=== PATIENT | female | born 1990 | race Caucasian/White ===

== ENCOUNTER 2024-03-22 09:24 | Inpatient (IN) ==
[2024-03-22] MEDS ORDERED: OXYTOCIN 30 UNITS/NSS 30 UNITS/500 ML BAG IV PRN (09:34)
[2024-03-22] MEDS ORDERED: LIDOCAINE 1% LOCAL 20 ML VIAL INFIL PRN (09:34)
[2024-03-22 10:22] LABS: Hematocrit (blood only) 36.3 % (37.0-47.0); Hemoglobin 12.4 g/dl (12.0-16.0); Mean Corpuscular Hemoglobin 30.8 pg (25.0-34.0); Mean Corpuscular Hgb Conc 34.2 g/dL (32.0-36.0); Mean Corpuscular Volume 90.3 fL (80.0-100.0); Platelet Count 243 K/uL (130-400); RDW Coefficient of Variation 13.1 % (11.5-14.5); RDW Standard Deviation 42.9 fL (36.4-46.3); Red Blood Count 4.02 M/uL (4.20-5.40); White Blood Count 10.91 K/ul (4.8-10.8)
--- NOTE | 2024-03-22 10:29 | History & Physical Report ---
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 Endorses only complications with was some food aversion in 1st trimester and bleeding in the 2nd trimester, otherwise uncomplicated. States only pain she's having is left upper abdominal pain and left lower rib pain due to kicking/pressure on those areas more than others. Denies any recent fever, body aches, chills, headache, visual changes, SOB, LE pain/swelling, or LE numbness/tingling. GBS+ on 02/21/24, Rh- has received rhogam Allergies Allergy/AdvReac Type Severity Reaction Status Date / Time cat dander Allergy Intermediate sinus Verified 03/20/24 08:38 congestion house dust Allergy Intermediate SOB Verified 03/20/24 08:38 dog dander Allergy Mild puffy eye Verified 03/20/24 08:38 No Known Drug Allergies Allergy Unknown Verified 03/22/24 09:52 peanut Allergy Diarrhea Verified 03/22/24 09:52 turkey Allergy SEVERE Uncoded 03/20/24 08:38 DIARRHEA Home Medications Medication Instructions Recorded Confirmed Type cetirizine 10 mg tablet (Zyrtec) 10 mg PO DAILY 09/24/23 03/22/24 History omega-3 acid ethyl esters 1 gram 1 cap PO DAILY 09/24/23 03/22/24 History capsule vitamin no.180-ferrous 1 tab PO DAILY 09/24/23 03/22/24 History fumarate 27 mg-folic acid 1 mg tablet ( Plus Vitamin-Mineral) magnesium glycinate 100 mg PO DAILY #30 caps 10/07/23 03/22/24 Rx valacyclovir 500 mg tablet 500 mg PO BID #60 tabs 02/21/24 03/22/24 Rx (Valtrex) Patient History Medical History Supervision of elderly multigravida NAVEED III with severe dysplasia Surgical History Status post knee surgery R [place] teeth removed H/O knee surgery H/O LEEP L, when pt had done Family History Grandfather (Paternal) Prostate cancer Denies family history of Ovarian cancer Myocardial infarction Breast cancer Colorectal cancer Social History Smoking Status: Never smoker Second Hand Exposure: No; Do You Dip or Chew Tobacco: No; Hx Alcohol Use: No Hx Substance Use: No Preferred Language: Malay Communication Ability: Effective Visual Impairment: No Limitations Hearing Ability: Normal Business Owner/Engineer Required: No Beliefs That Will Affect Care: None marital status: marital status details: Jr (35) [phone] or [phone] Current Living Situation: Spouse Current Living Situation Comment: lives with sposuecat and dog spouse to change litter current occupational status: employed current occupation: Drill Instructor Other Information That Helps Us Care for You: No Feels Safe at Home: Yes Safety Concerns: Feels Safe At This Time Childhood Exposure to Second-Hand Smoke: No Diet: regular Dental Care, Regularly: Yes Physical Activity Frequency: 5-6 Times per Week Seatbelt Use: always Sunscreen Use: Yes Assistive Devices: None Review of Systems as above Physical Exam Physical Exam: General: A&Ox4, answers questions appropriately, resting comfortably, nontoxic in appearance Skin: warm, dry, intact HEENT: NC/AT, anicteric sclerae, conjunctiva w/o injection, moist mucous membranes Heart: +s1/s2, RRR, no murmurs/rubs/gallops Lungs: equal air entry b/l, clear to auscultation b/l, no wheeze/rales/rhonchi Abd: gravid, +BS, LUQ mildly tender to palpation, no erythema or swelling Cervical: 4/80/-2, uterus anterior, est weight 8-9lbs Ext: no erythema/swelling/tenderness to palpation, no cyanosis/clubbing Neuro: speech intact, no facial droop, moving all extremities on command : FHR baseline 135, moderate variability, accelerations present, decelerations absent Results & Data Vital Signs (Past 12 Hours) Vital Signs Temp Pulse Resp BP 03/22/24 09:56 37.0 C 20 03/22/24 09:40 99 H 129/82 Supervising Physician Co-Signing Physician Notes Resident Physician Supervision Note: I interviewed and examined the patient. Discussed with Dr. Barba and agree with findings and plan as documented in the note. Any exceptions or clarifications are listed here: 34yo @ 40 5/7, IOL postdates, Advanced maternal age, Rh-, GBS positive, history of HSV. On Valtrex, no active lesions. Will admit to labor and delivery, anticipate induction of labor with Pitocin. Patient is agreeable to this plan. Will plan to start Pitocin when safe nursing staffing is available. Patient aware of potential delay due to staffing. Documented By: Leora Benjamin DO Resident Activity Tracking Resident Involvement: Resident Care Provided Care Provided: OB Delivery
[2024-03-22] MEDS: PENICILLIN GK 6 MU in DEXTROSE 5% 250 ML IV STA (14:00)
[2024-03-22] MEDS: LACTATED RINGER'S 1,000 ML IV PRN (14:00)
[2024-03-22] MEDS: OXYTOCIN 30 UNITS/NSS 30 UNITS/500 ML BAG IV PRN (15:23)
--- NOTE | 2024-03-22 16:39 | Obstetrical Progress Note ---
Date of Service March 22, 2024 Assessment & Plan Admission and Anticipated Discharge Date Admission Date: March 22, 2024 Subjective Comfortable, not feeling contractions. FHT category 1. [place] every 2 to 4 minutes. Continue Pitocin. Results & Data Vital Signs (Past 12 Hours) Vital Signs Temp Pulse Resp BP 03/22/24 16:33 75 03/22/24 16:33 144/90 H 03/22/24 15:45 18 03/22/24 15:45 18 03/22/24 15:24 80 03/22/24 15:24 139/88 03/22/24 15:15 18 03/22/24 15:15 37.1 C 18 03/22/24 14:45 18 03/22/24 14:45 18 03/22/24 14:15 18 03/22/24 14:15 18 03/22/24 14:01 72 03/22/24 14:01 141/80 H 03/22/24 11:10 20 03/22/24 11:10 20 03/22/24 11:00 18 03/22/24 11:00 18 03/22/24 10:29 20 03/22/24 10:29 20 03/22/24 10:00 18 03/22/24 10:00 18 03/22/24 09:56 37.0 C 20 03/22/24 09:40 99 H 129/82 PG Care Time/CCT Total # of Minutes Spent Total Time Spent with Patient: Total time spent is greater than 50% in coordination of care (as documented) at patient's floor/unit and/or counseling patient: Coding Level of Care Code None
[2024-03-22] MEDS: PENICILLIN GK 3 MU in DEXTROSE 5% 100 ML IV PRN (18:02)
--- NOTE | 2024-03-22 22:23 | Labor Progress Brief Note ---
Date of Service March 22, 2024 Subjective Not feeling ctx. Comfortable. FHT Cat 1 [place] Q 2 SVE 5/80/-2 Pit @ 20 AROM clear fluid. Continue labor. Assessment & Plan Admission and Anticipated Discharge Date Admission Date: March 22, 2024 Results & Data Vital Signs (Past 12 Hours) Vital Signs Temp Pulse Resp BP Pulse Ox 03/22/24 22:18 100 03/22/24 22:18 69 03/22/24 22:13 100 03/22/24 22:13 72 03/22/24 22:10 18 03/22/24 22:10 36.5 C 18 03/22/24 22:08 100 03/22/24 22:08 81 03/22/24 22:03 99 03/22/24 22:03 74 03/22/24 21:31 18 03/22/24 21:31 18 03/22/24 21:31 64 03/22/24 21:31 117/75 03/22/24 20:32 18 03/22/24 20:32 18 03/22/24 20:32 61 03/22/24 20:32 121/74 03/22/24 19:30 64 03/22/24 19:30 134/81 03/22/24 19:07 18 03/22/24 19:07 37.1 C 18 03/22/24 19:00 20 03/22/24 19:00 20 03/22/24 18:30 18 03/22/24 18:30 18 03/22/24 18:02 75 03/22/24 18:02 135/77 03/22/24 18:00 18 03/22/24 18:00 18 03/22/24 17:15 18 03/22/24 17:15 18 03/22/24 17:03 67 03/22/24 17:03 144/77 H 03/22/24 16:33 75 03/22/24 16:33 144/90 H 03/22/24 16:15 18 03/22/24 16:15 18 03/22/24 15:45 18 03/22/24 15:45 18 03/22/24 15:24 80 03/22/24 15:24 139/88 03/22/24 15:15 18 03/22/24 15:15 37.1 C 18 03/22/24 14:45 18 10/17/24 14:45 18 03/22/24 14:15 18 03/22/24 14:15 18 03/22/24 14:01 72 03/22/24 14:01 141/80 H 03/22/24 11:10 20 03/22/24 11:10 20 03/22/24 11:00 18 03/22/24 11:00 18 03/22/24 10:29 20 03/22/24 10:29 20 Coding Level of Care Code None
[2024-03-22] MEDS ORDERED: SODIUM CHLORIDE 0.9% PF INJ 10 ML VIAL EPI PRN (23:23)
[2024-03-22] MEDS ORDERED: ePHEDrine sulfate 50 MG/ML AMP IV PRN (23:23)
[2024-03-22] MEDS ORDERED: fentaNYL citrate PF 100 MCG/2 ML VIAL EPI PRN (23:23)
[2024-03-22] MEDS ORDERED: BUPIVACAINE 0.25% PF 30 ML VIAL EPI PRN (23:23)
[2024-03-22] MEDS ORDERED: diphenhydrAMINE 50 MG/ML VIAL IV PRN (23:23)
[2024-03-22] MEDS ORDERED: ROPIVACAINE 0.5% PF 5 MG/ML 20 ML VIAL EPI PRN (23:23)
[2024-03-22] MEDS ORDERED: LIDOCAINE 2% MPF LOCAL 5 ML VIAL EPI PRN (23:23)
[2024-03-22] MEDS ORDERED: NALOXONE HCL 1 MG in SODIUM CHLORIDE 0.9% 1,000 ML IV PRN (23:23)
[2024-03-22] MEDS ORDERED: NALOXONE HCL 0.4 MG/1 ML VIAL/CARP IV PRN (23:23)
[2024-03-22] MEDS ORDERED: NALBUPHINE HCL INJ 10 MG/ML AMP IV PRN (23:23)
--- NOTE | 2024-03-22 23:23 | Anesthesiology Consultation ---
Date of Service March 22, 2024 Assessment & Plan (1) Encounter for pre-operative examination: Chart Review Chart Review: Patient NOT seen in Pre Admission Testing and Acceptable Risk for Labor Epidural Consults Requested none History Height/Weight Height: 5 ft 7 in Weight: 106.141 kg Allergies Allergy/AdvReac Type Severity Reaction Status Date / Time cat dander Allergy Intermediate sinus Verified 03/20/24 08:38 congestion house dust Allergy Intermediate SOB Verified 03/20/24 08:38 dog dander Allergy Mild puffy eye Verified 03/20/24 08:38 No Known Drug Allergies Allergy Unknown Verified 03/22/24 09:52 peanut Allergy Diarrhea Verified 03/22/24 09:52 turkey Allergy SEVERE Uncoded 03/20/24 08:38 DIARRHEA Medications Home Medications Medication Instructions Recorded Confirmed Last Taken cetirizine 10 mg tablet (Zyrtec) 10 mg PO DAILY 09/24/23 03/22/24 03/22/24 omega-3 acid ethyl esters 1 gram 1 cap PO DAILY 09/24/23 03/22/24 03/22/24 capsule vitamin no.180-ferrous 1 tab PO DAILY 09/24/23 03/22/24 03/22/24 fumarate 27 mg-folic acid 1 mg tablet ( Plus Vitamin-Mineral) magnesium glycinate 100 mg PO DAILY #30 caps 10/07/23 03/22/24 03/22/24 valacyclovir 500 mg tablet 500 mg PO BID #60 tabs 02/21/24 03/22/24 03/22/24 (Valtrex) Active Medications Generic Name Dose Route Start Last Admin Trade Name Freq PRN Reason Stop Dose Admin Oxytocin 30 units in 500 mls @ 10 mls/hr 03/22/24 09:34 03/22/24 22:32 Pitocin 30 Units/Nss IV 03/24/24 09:33 0.6 units/hr .Q24H PRN 10 mls/hr Labor Induction/Augmentation Titration Protocol 0.6 UNITS/HR Lactated Ringer's 1,000 mls @ 125 mls/hr 03/22/24 09:34 03/22/24 23:16 Lr IV 03/24/24 09:33 Infused .Q8H PRN Infusion L&D Protocol Protocol Penicillin G Potassium 3 mu/ 106 mls @ 100 mls/hr 03/22/24 14:11 03/22/24 22:08 Dextrose IV 04/01/24 14:10 100 mls/hr Q4H PRN Administration GBS(+) Until Delivery Past Medical History Medical History Supervision of elderly multigravida NAVEED III with severe dysplasia Past Family History Family History Grandfather (Paternal) Prostate cancer Denies family history of Ovarian cancer Myocardial infarction Breast cancer Colorectal cancer Past Surgical History Surgical History Status post knee surgery R [place] teeth removed H/O knee surgery H/O LEEP L, when pt had done Social History Smoking Status: Never smoker Do You Dip or Chew Tobacco: No Hx Alcohol Use: No Alcohol type: wine and hard liquor Hx Substance Use: No substance use type: does not use Physical Exam Vital Signs Last Vital Signs Temp 97.7 F 03/22/24 22:10 Pulse 70 03/22/24 23:03 Resp 18 03/22/24 22:10 BP 109/57 L 03/22/24 22:32 Pulse Ox 100 03/22/24 23:03 Testing Laboratory Results 03/22/24 10:01 Blood Type A Negative 03/22/24 10:01 Blood Type Cancelled 03/22/24 10:01 Antibody Screen Cancelled 03/22/24 10:01 Antibody Screen NEGATIVE 03/22/24 10:01
[2024-03-22] MEDS: BUPIVACAINE 0.25% PF 30 ML VIAL ONE (23:46)
[2024-03-22] MEDS: LIDOCAINE 2%/EPINEPHRINE 1:200,000 20 ML PF ONE (23:46)
[2024-03-22] MEDS: fentANYL 2 MCG/ML BUPIVacaine 0.125%-NSS 100ML BAG ONE (23:47)
[2024-03-23] MEDS: fentaNYL citrate PF 100 MCG/2 ML VIAL ONE (00:07)
[2024-03-23] MEDS: SODIUM CHLORIDE 0.9% PF INJ 10 ML VIAL ONE (00:07)
[2024-03-23] MEDS: ePHEDrine sulfate 50 MG/ML AMP ONE (00:59)
[2024-03-23] MEDS: fentANYL 2 MCG/ML BUPIVacaine 0.125%-NSS 100ML BAG EPI PRN (07:54)
--- NOTE | 2024-03-23 09:14 | Labor Progress Brief Note ---
Date of Service March 23, 2024 Subjective Introduced myself as taking over care. Pt resting comfortably Assessment & Plan (1) Encounter for induction of labor: (2) Group B streptococcal infection during : (3) HSV (herpes simplex virus) infection: Plan 34 yo G1 at 40 6/7 [facility] admitted for IOL VSS Fetus cat 1 currently Labor - pit at 5. Received signout from off-coming provider regarding pit d/c overnight due to decel, pit restarted and slowly increasing with cervical change on last exam by RN around 7. FHT cat 1 currently and rosa regularly so will recheck in the next hour or so. Pt inquiring about whether this is indicative of if baby will tolerate pushing, etc. Discussed this is something to monitor but no way to predict if baby will tolerate pushing but currently looks good, verbalized understanding GBS+, pcn ordered epidural in place Admission and Anticipated Discharge Date Admission Date: March 22, 2024 Physical Exam Genitourinary: OB Exam Monitor Tracing: + external FHT monitor used, + external uterine monitor used (4) and + category I (120/mod/+accel/-decel) Results & Data Vital Signs (Past 12 Hours) Vital Signs Temp Pulse Resp BP Pulse Ox 03/23/24 09:10 69 100 03/23/24 09:09 64 138/93 03/23/24 09:05 61 99 03/23/24 09:00 64 99 03/23/24 08:55 99 03/23/24 08:55 72 03/23/24 08:55 70 134/91 03/23/24 08:50 65 98 03/23/24 08:45 63 99 03/23/24 08:40 71 100 03/23/24 08:39 71 127/68 03/23/24 08:35 68 99 03/23/24 08:30 71 98 03/23/24 08:25 79 136/63 99 03/23/24 08:20 74 98 03/23/24 08:15 63 98 03/23/24 08:10 72 129/80 98 03/23/24 08:05 63 97 03/23/24 08:00 97.9 F 66 18 99 03/23/24 07:56 72 137/74 03/23/24 07:55 79 100 03/23/24 07:50 65 99 03/23/24 07:45 71 99 03/23/24 07:40 75 99 03/23/24 07:39 65 128/69 03/23/24 07:35 71 100 03/23/24 07:30 77 100 03/23/24 07:25 74 99 03/23/24 07:24 68 16 133/73 03/23/24 07:20 63 99 03/23/24 07:15 64 99 03/23/24 07:10 67 138/76 100 03/23/24 07:05 80 100 03/23/24 07:00 81 99 03/23/24 06:55 68 141/74 H 98 03/23/24 06:50 98.2 F 75 18 98 03/23/24 06:45 74 98 03/23/24 06:40 81 99 03/23/24 06:35 84 98 03/23/24 06:30 73 99 03/23/24 06:25 66 100 03/23/24 06:24 70 16 128/80 03/23/24 06:20 66 98 03/23/24 06:15 67 98 03/23/24 06:10 98 03/23/24 06:10 65 03/23/24 06:10 67 129/68 03/23/24 06:04 62 98 03/23/24 05:59 65 99 03/23/24 05:57 63 121/67 03/23/24 05:54 98 H 99 03/23/24 05:49 68 98 03/23/24 05:45 16 03/23/24 05:45 98.2 F 16 03/23/24 05:44 66 99 03/23/24 05:39 83 136/84 100 03/23/24 05:34 66 97 03/23/24 05:29 65 97 03/23/24 05:24 65 131/83 98 03/23/24 05:19 69 97 03/23/24 05:14 68 98 03/23/24 05:09 98 03/23/24 05:09 71 03/23/24 05:09 66 127/80 03/23/24 05:04 71 99 03/23/24 04:59 67 100 03/23/24 04:55 69 127/83 03/23/24 04:54 69 99 03/23/24 04:49 65 98 03/23/24 04:44 61 97 03/23/24 04:39 66 137/78 100 03/23/24 04:34 65 99 03/23/24 04:29 76 100 03/23/24 04:25 68 135/97 03/23/24 04:24 67 100 03/23/24 04:19 79 98 03/23/24 04:14 79 99 03/23/24 04:13 88 94 03/23/24 04:09 100 03/23/24 04:09 67 03/23/24 04:09 72 130/89 03/23/24 04:04 69 97 03/23/24 04:00 16 03/23/24 04:00 98.2 F 16 03/23/24 03:59 56 L 98 03/23/24 03:55 61 126/82 03/23/24 03:54 62 96 03/23/24 03:49 58 L 97 03/23/24 03:44 61 97 03/23/24 03:40 60 127/77 03/23/24 03:39 57 L 98 03/23/24 03:34 59 L 98 03/23/24 03:29 69 97 03/23/24 03:25 59 L 124/72 03/23/24 03:24 58 L 99 03/23/24 03:19 60 99 03/23/24 03:14 60 100 03/23/24 03:11 64 129/77 03/23/24 03:09 62 100 03/23/24 03:04 74 99 03/23/24 02:59 71 99 03/23/24 02:54 79 139/89 100 03/23/24 02:49 66 98 03/23/24 02:44 76 99 03/23/24 02:39 68 131/78 100 03/23/24 02:34 68 100 03/23/24 02:30 18 03/23/24 02:30 97.9 F 18 03/23/24 02:29 69 100 03/23/24 02:24 67 127/78 99 03/23/24 02:19 69 96 03/23/24 02:14 67 100 03/23/24 02:10 69 126/75 03/23/24 02:09 63 100 03/23/24 02:04 70 98 03/23/24 01:59 60 99 03/23/24 01:54 74 126/76 100 03/23/24 01:49 62 97 03/23/24 01:44 72 99 03/23/24 01:39 78 124/75 98 03/23/24 01:34 75 97 03/23/24 01:29 76 96 03/23/24 01:26 65 122/74 03/23/24 01:24 67 97 03/23/24 01:19 64 99 03/23/24 01:14 67 97 03/23/24 01:10 65 121/72 03/23/24 01:09 67 98 03/23/24 01:04 71 97 03/23/24 00:59 66 98 03/23/24 00:54 70 127/74 98 03/23/24 00:49 77 98 03/23/24 00:44 61 98 03/23/24 00:40 70 131/75 03/23/24 00:39 66 98 03/23/24 00:34 67 99 03/23/24 00:29 75 100 03/23/24 00:24 78 99 03/23/24 00:23 67 140/79 03/23/24 00:19 96 H 100 03/23/24 00:14 99 03/23/24 00:14 79 03/23/24 00:14 65 119/68 03/23/24 00:10 71 117/56 L 03/23/24 00:08 79 99 03/23/24 00:04 68 18 118/69 03/23/24 00:03 65 98 03/23/24 00:00 74 129/68 03/22/24 23:58 98 03/22/24 23:58 67 03/22/24 23:54 18 03/22/24 23:54 98.1 F 18 03/22/24 23:53 99 03/22/24 23:53 65 03/22/24 23:52 64 03/22/24 23:52 123/61 03/22/24 23:49 80 03/22/24 23:49 132/68 03/22/24 23:48 98 03/22/24 23:48 77 03/22/24 23:46 18 03/22/24 23:46 18 03/22/24 23:46 76 03/22/24 23:46 115/66 03/22/24 23:43 99 03/22/24 23:43 76 03/22/24 23:43 77 03/22/24 23:43 121/66 03/22/24 23:40 69 03/22/24 23:40 126/70 03/22/24 23:38 99 03/22/24 23:38 69 03/22/24 23:33 98 03/22/24 23:33 71 03/22/24 23:33 131/84 03/22/24 23:28 100 03/22/24 23:28 72 03/22/24 23:23 100 03/22/24 23:23 67 03/22/24 23:03 100 03/22/24 23:03 70 03/22/24 22:58 100 03/22/24 22:58 77 03/22/24 22:53 99 03/22/24 22:53 68 03/22/24 22:48 99 03/22/24 22:48 74 03/22/24 22:43 100 03/22/24 22:43 65 03/22/24 22:38 99 03/22/24 22:38 73 03/22/24 22:33 99 03/22/24 22:33 71 03/22/24 22:32 74 03/22/24 22:32 109/57 L 03/22/24 22:28 98 03/22/24 22:28 89 03/22/24 22:23 99 03/22/24 22:23 71 03/22/24 22:18 100 03/22/24 22:18 69 03/22/24 22:13 100 03/22/24 22:13 72 03/22/24 22:10 18 03/22/24 22:10 97.7 F 18 03/22/24 22:08 100 03/22/24 22:08 81 03/22/24 22:03 99 03/22/24 22:03 74 03/22/24 21:31 18 03/22/24 21:31 18 03/22/24 21:31 64 03/22/24 21:31 117/75 Coding Level of Care Code None Diagnoses Encounter for induction of labor Z34.90 Group B streptococcal infection during O98.819; B95.1 HSV (herpes simplex virus) infection B00.9
--- NOTE | 2024-03-23 12:06 | Labor Progress Brief Note ---
Date of Service March 23, 2024 Subjective delayed entry - found to be complete at last check just before 11am Assessment & Plan (1) Encounter for induction of labor: (2) Group B streptococcal infection during : (3) HSV (herpes simplex virus) infection: Plan 34 yo G1 at 40 6/7 [facility] admitted for IOL VSS Fetus cat 1 currently Labor - pt pushing for the last hour, pushing effectively. ?if pubic arch is narrow but seems to be making steady progress w/ pushing, will continue to monitor GBS+, pcn ordered epidural in place Admission and Anticipated Discharge Date Admission Date: March 22, 2024 Physical Exam Genitourinary: Manual OB Exam: + cervical dilation 10 cm, + cervical effacement 100% and + station 0 and + 1 OB Exam Monitor Tracing: + external FHT monitor used, + external uterine monitor used (4) and + category I (120/mod/+accel/-decel) Results & Data Vital Signs (Past 12 Hours) Vital Signs Temp Pulse Resp BP Pulse Ox 03/23/24 12:00 75 97 03/23/24 11:55 80 97 03/23/24 11:54 71 123/72 03/23/24 11:52 78 85 L 03/23/24 11:50 64 95 03/23/24 11:45 93 H 99 03/23/24 11:41 77 124/62 03/23/24 11:40 97 03/23/24 11:40 105 H 03/23/24 11:40 76 89 L 03/23/24 11:35 71 99 03/23/24 11:33 80 82 L 03/23/24 11:30 71 99 03/23/24 11:25 107 H 100 03/23/24 11:24 70 130/78 03/23/24 11:20 73 84 L 03/23/24 11:17 73 86 L 03/23/24 11:15 70 98 03/23/24 11:10 106 H 100 03/23/24 11:05 76 99 03/23/24 11:03 78 86 L 03/23/24 11:00 75 100 03/23/24 10:55 100 03/23/24 10:55 72 03/23/24 10:55 71 130/84 03/23/24 10:50 69 99 03/23/24 10:45 69 100 03/23/24 10:40 66 99 03/23/24 10:39 72 16 120/76 03/23/24 10:35 71 99 03/23/24 10:30 63 100 03/23/24 10:25 100 03/23/24 10:25 62 03/23/24 10:25 63 115/67 03/23/24 10:20 68 100 03/23/24 10:15 70 100 03/23/24 10:11 63 123/69 03/23/24 10:10 63 99 03/23/24 10:05 59 L 100 03/23/24 10:00 64 100 03/23/24 09:55 100 03/23/24 09:55 71 03/23/24 09:55 99.3 F 65 16 134/76 03/23/24 09:50 61 100 03/23/24 09:45 61 100 03/23/24 09:40 65 100 03/23/24 09:39 62 135/73 03/23/24 09:35 63 100 03/23/24 09:30 69 100 03/23/24 09:25 63 99 03/23/24 09:24 65 135/72 03/23/24 09:20 61 98 03/23/24 09:15 60 99 03/23/24 09:10 69 100 03/23/24 09:09 64 138/93 03/23/24 09:05 61 99 03/23/24 09:00 64 99 03/23/24 08:55 99 03/23/24 08:55 72 03/23/24 08:55 70 134/91 03/23/24 08:50 65 98 03/23/24 08:45 63 99 03/23/24 08:40 71 100 03/23/24 08:39 71 127/68 03/23/24 08:35 68 99 03/23/24 08:30 71 98 03/23/24 08:25 79 136/63 99 03/23/24 08:20 74 98 03/23/24 08:15 63 98 03/23/24 08:10 72 129/80 98 03/23/24 08:05 63 97 03/23/24 08:00 97.9 F 66 18 99 03/23/24 07:56 72 137/74 03/23/24 07:55 79 100 03/23/24 07:50 65 99 03/23/24 07:45 71 99 03/23/24 07:40 75 99 03/23/24 07:39 65 128/69 03/23/24 07:35 71 100 03/23/24 07:30 77 100 03/23/24 07:25 74 99 03/23/24 07:24 68 16 133/73 03/23/24 07:20 63 99 03/23/24 07:15 64 99 03/23/24 07:10 67 138/76 100 03/23/24 07:05 80 100 03/23/24 07:00 81 99 03/23/24 06:55 68 141/74 H 98 03/23/24 06:50 98.2 F 75 18 98 03/23/24 06:45 74 98 03/23/24 06:40 81 99 03/23/24 06:35 84 98 03/23/24 06:30 73 99 03/23/24 06:25 66 100 03/23/24 06:24 70 16 128/80 03/23/24 06:20 66 98 03/23/24 06:15 67 98 03/23/24 06:10 98 03/23/24 06:10 65 03/23/24 06:10 67 129/68 03/23/24 06:04 62 98 03/23/24 05:59 65 99 03/23/24 05:57 63 121/67 03/23/24 05:54 98 H 99 03/23/24 05:49 68 98 03/23/24 05:45 16 03/23/24 05:45 98.2 F 16 03/23/24 05:44 66 99 03/23/24 05:39 83 136/84 100 03/23/24 05:34 66 97 03/23/24 05:29 65 97 03/23/24 05:24 65 131/83 98 03/23/24 05:19 69 97 03/23/24 05:14 68 98 03/23/24 05:09 98 03/23/24 05:09 71 03/23/24 05:09 66 127/80 03/23/24 05:04 71 99 03/23/24 04:59 67 100 03/23/24 04:55 69 127/83 03/23/24 04:54 69 99 10/18/24 04:49 65 98 03/23/24 04:44 61 97 03/23/24 04:39 66 137/78 100 03/23/24 04:34 65 99 03/23/24 04:29 76 100 03/23/24 04:25 68 135/97 03/23/24 04:24 67 100 03/23/24 04:19 79 98 03/23/24 04:14 79 99 03/23/24 04:13 88 94 03/23/24 04:09 100 03/23/24 04:09 67 03/23/24 04:09 72 130/89 03/23/24 04:04 69 97 03/23/24 04:00 16 03/23/24 04:00 98.2 F 16 03/23/24 03:59 56 L 98 03/23/24 03:55 61 126/82 03/23/24 03:54 62 96 03/23/24 03:49 58 L 97 03/23/24 03:44 61 97 03/23/24 03:40 60 127/77 03/23/24 03:39 57 L 98 03/23/24 03:34 59 L 98 03/23/24 03:29 69 97 03/23/24 03:25 59 L 124/72 03/23/24 03:24 58 L 99 03/23/24 03:19 60 99 03/23/24 03:14 60 100 03/23/24 03:11 64 129/77 03/23/24 03:09 62 100 03/23/24 03:04 74 99 03/23/24 02:59 71 99 03/23/24 02:54 79 139/89 100 03/23/24 02:49 66 98 03/23/24 02:44 76 99 03/23/24 02:39 68 131/78 100 03/23/24 02:34 68 100 03/23/24 02:30 18 03/23/24 02:30 97.9 F 18 03/23/24 02:29 69 100 03/23/24 02:24 67 127/78 99 03/23/24 02:19 69 96 03/23/24 02:14 67 100 03/23/24 02:10 69 126/75 03/23/24 02:09 63 100 03/23/24 02:04 70 98 03/23/24 01:59 60 99 03/23/24 01:54 74 126/76 100 03/23/24 01:49 62 97 03/23/24 01:44 72 99 03/23/24 01:39 78 124/75 98 03/23/24 01:34 75 97 03/23/24 01:29 76 96 03/23/24 01:26 65 122/74 03/23/24 01:24 67 97 03/23/24 01:19 64 99 03/23/24 01:14 67 97 03/23/24 01:10 65 121/72 03/23/24 01:09 67 98 03/23/24 01:04 71 97 03/23/24 00:59 66 98 03/23/24 00:54 70 127/74 98 03/23/24 00:49 77 98 03/23/24 00:44 61 98 03/23/24 00:40 70 131/75 03/23/24 00:39 66 98 03/23/24 00:34 67 99 03/23/24 00:29 75 100 03/23/24 00:24 78 99 03/23/24 00:23 67 140/79 03/23/24 00:19 96 H 100 03/23/24 00:14 99 03/23/24 00:14 79 03/23/24 00:14 65 119/68 03/23/24 00:10 71 117/56 L 03/23/24 00:08 79 99 03/23/24 00:04 68 18 118/69 Coding Level of Care Code None Diagnoses Encounter for induction of labor Z34.90 Group B streptococcal infection during O98.819; B95.1 HSV (herpes simplex virus) infection B00.9
--- NOTE | 2024-03-23 14:33 | Labor Progress Brief Note ---
Date of Service March 23, 2024 Subjective Took a short break from pushing due to decel Assessment & Plan (1) Encounter for induction of labor: (2) Group B streptococcal infection during : (3) HSV (herpes simplex virus) infection: Plan 34 yo G1 at 40 6/7 [facility] admitted for IOL VSS Fetus cat 1 currently Labor - pt continues to push very effectively however had to take a short break due to decel. Was able to restart pushing shortly after with restarting pitocin however after pushing on a side, additional decel again noted without further progress beyond +1, there is some caput that may be lower but not bony part. Discussed at this point still remote from delivery, would rec CS due to NRFHT, arrest of descent. Pt in agreement. Discussed indications, risks, benefits, alternatives with risks including infection, bleeding, injury to adjacent structures (bowel, bladder, ureters, blood vessels, nerves, baby), possible need for blood transfusion and/or life saving hysterectomy, VTE. Consent reviewed in detail w/ pt and signed after all questions answered to her satisfaction. T&C, for ancef and azithro Admission and Anticipated Discharge Date Admission Date: March 22, 2024 Physical Exam Genitourinary: Manual OB Exam: + cervical dilation 10 cm, + cervical effacement 100% and + station + 1 OB Exam Monitor Tracing: + external FHT monitor used, + external uterine monitor used (4) and + category I (120 /mod/+accel/-decel) Results & Data Vital Signs (Past 12 Hours) Vital Signs Temp Pulse Resp BP Pulse Ox 03/23/24 14:25 76 98 03/23/24 14:24 78 121/77 03/23/24 14:20 69 100 03/23/24 14:15 92 H 96 03/23/24 14:10 65 97 03/23/24 14:05 60 95 03/23/24 14:00 66 97 03/23/24 13:55 97 03/23/24 13:55 58 L 03/23/24 13:55 60 115/69 03/23/24 13:50 79 98 03/23/24 13:45 74 98 03/23/24 13:41 92 H 82 L 03/23/24 13:40 69 97 03/23/24 13:39 71 131/70 03/23/24 13:35 76 97 03/23/24 13:30 90 99 03/23/24 13:25 82 96 03/23/24 13:24 85 131/84 03/23/24 13:20 95 H 98 03/23/24 13:15 72 97 03/23/24 13:10 68 96 03/23/24 13:05 87 96 03/23/24 13:00 69 95 03/23/24 12:55 72 95 03/23/24 12:50 78 96 03/23/24 12:45 68 96 03/23/24 12:41 72 124/58 L 03/23/24 12:40 93 03/23/24 12:40 72 03/23/24 12:40 71 86 L 03/23/24 12:35 68 96 03/23/24 12:30 106 H 96 03/23/24 12:26 102 H 127/54 L 03/23/24 12:25 66 96 03/23/24 12:23 64 86 L 03/23/24 12:20 70 97 03/23/24 12:16 71 88 L 03/23/24 12:15 70 97 03/23/24 12:11 70 122/58 L 03/23/24 12:10 96 03/23/24 12:10 71 03/23/24 12:10 75 88 L 03/23/24 12:05 68 95 03/23/24 12:03 77 84 L 03/23/24 12:00 75 97 03/23/24 11:55 80 97 03/23/24 11:54 71 123/72 03/23/24 11:52 78 85 L 03/23/24 11:50 64 95 03/23/24 11:45 93 H 99 03/23/24 11:41 77 124/62 03/23/24 11:40 97 03/23/24 11:40 105 H 03/23/24 11:40 76 89 L 03/23/24 11:35 71 99 03/23/24 11:33 80 82 L 03/23/24 11:30 71 99 03/23/24 11:25 107 H 100 03/23/24 11:24 70 130/78 03/23/24 11:20 73 84 L 03/23/24 11:17 73 86 L 03/23/24 11:15 70 98 03/23/24 11:10 106 H 100 03/23/24 11:05 76 99 03/23/24 11:03 78 86 L 03/23/24 11:00 75 100 03/23/24 10:55 100 03/23/24 10:55 72 03/23/24 10:55 71 130/84 03/23/24 10:50 69 99 03/23/24 10:45 69 100 03/23/24 10:40 66 99 03/23/24 10:39 72 16 120/76 03/23/24 10:35 71 99 03/23/24 10:30 63 100 03/23/24 10:25 100 03/23/24 10:25 62 03/23/24 10:25 63 115/67 03/23/24 10:20 68 100 03/23/24 10:15 70 100 03/23/24 10:11 63 123/69 03/23/24 10:10 63 99 03/23/24 10:05 59 L 100 03/23/24 10:00 64 100 03/23/24 09:55 100 03/23/24 09:55 71 03/23/24 09:55 99.3 F 65 16 134/76 03/23/24 09:50 61 100 03/23/24 09:45 61 100 03/23/24 09:40 65 100 03/23/24 09:39 62 135/73 03/23/24 09:35 63 100 03/23/24 09:30 69 100 03/23/24 09:25 63 99 03/23/24 09:24 65 135/72 03/23/24 09:20 61 98 03/23/24 09:15 60 99 03/23/24 09:10 69 100 03/23/24 09:09 64 138/93 03/23/24 09:05 61 99 03/23/24 09:00 64 99 03/23/24 08:55 99 03/23/24 08:55 72 03/23/24 08:55 70 134/91 03/23/24 08:50 65 98 03/23/24 08:45 63 99 03/23/24 08:40 71 100 03/23/24 08:39 71 127/68 03/23/24 08:35 68 99 03/23/24 08:30 71 98 03/23/24 08:25 79 136/63 99 03/23/24 08:20 74 98 03/23/24 08:15 63 98 03/23/24 08:10 72 129/80 98 03/23/24 08:05 63 97 03/23/24 08:00 97.9 F 66 18 99 03/23/24 07:56 72 137/74 03/23/24 07:55 79 100 03/23/24 07:50 65 99 03/23/24 07:45 71 99 03/23/24 07:40 75 99 03/23/24 07:39 65 128/69 03/23/24 07:35 71 100 03/23/24 07:30 77 100 03/23/24 07:25 74 99 03/23/24 07:24 68 16 133/73 03/23/24 07:20 63 99 03/23/24 07:15 64 99 03/23/24 07:10 67 138/76 100 03/23/24 07:05 80 100 03/23/24 07:00 81 99 03/23/24 06:55 68 141/74 H 98 03/23/24 06:50 98.2 F 75 18 98 03/23/24 06:45 74 98 03/23/24 06:40 81 99 03/23/24 06:35 84 98 03/23/24 06:30 73 99 03/23/24 06:25 66 100 03/23/24 06:24 70 16 128/80 03/23/24 06:20 66 98 03/23/24 06:15 67 98 03/23/24 06:10 98 03/23/24 06:10 65 03/23/24 06:10 67 129/68 03/23/24 06:04 62 98 03/23/24 05:59 65 99 03/23/24 05:57 63 121/67 03/23/24 05:54 98 H 99 03/23/24 05:49 68 98 03/23/24 05:45 16 03/23/24 05:45 98.2 F 16 03/23/24 05:44 66 99 03/23/24 05:39 83 136/84 100 03/23/24 05:34 66 97 03/23/24 05:29 65 97 03/23/24 05:24 65 131/83 98 03/23/24 05:19 69 97 03/23/24 05:14 68 98 03/23/24 05:09 98 03/23/24 05:09 71 03/23/24 05:09 66 127/80 03/23/24 05:04 71 99 03/23/24 04:59 67 100 03/23/24 04:55 69 127/83 03/23/24 04:54 69 99 03/23/24 04:49 65 98 03/23/24 04:44 61 97 03/23/24 04:39 66 137/78 100 03/23/24 04:34 65 99 03/23/24 04:29 76 100 03/23/24 04:25 68 135/97 03/23/24 04:24 67 100 03/23/24 04:19 79 98 03/23/24 04:14 79 99 03/23/24 04:13 88 94 03/23/24 04:09 100 03/23/24 04:09 67 03/23/24 04:09 72 130/89 03/23/24 04:04 69 97 03/23/24 04:00 16 03/23/24 04:00 98.2 F 16 03/23/24 03:59 56 L 98 03/23/24 03:55 61 126/82 03/23/24 03:54 62 96 03/23/24 03:49 58 L 97 03/23/24 03:44 61 97 03/23/24 03:40 60 127/77 03/23/24 03:39 57 L 98 03/23/24 03:34 59 L 98 03/23/24 03:29 69 97 03/23/24 03:25 59 L 124/72 03/23/24 03:24 58 L 99 03/23/24 03:19 60 99 03/23/24 03:14 60 100 03/23/24 03:11 64 129/77 03/23/24 03:09 62 100 03/23/24 03:04 74 99 03/23/24 02:59 71 99 03/23/24 02:54 79 139/89 100 03/23/24 02:49 66 98 03/23/24 02:44 76 99 03/23/24 02:39 68 131/78 100 03/23/24 02:34 68 100 Coding Level of Care Code None Diagnoses Encounter for induction of labor Z34.90 Group B streptococcal infection during O98.819; B95.1 HSV (herpes simplex virus) infection B00.9
[2024-03-23] MEDS ORDERED: SODIUM CHLORIDE 0.9% 250 ML IV PRN (14:37)
[2024-03-23] MEDS ORDERED: NALOXONE HCL 0.4 MG/1 ML VIAL/CARP IV PRN ×2 (14:51→15:45)
[2024-03-23] MEDS ORDERED: NALOXONE HCL 0.08 MG in SYRINGE 1.8 ML IV PRN ×2 (14:51→15:45)
[2024-03-23] MEDS ORDERED: LACTATED RINGER'S 500 ML IV PRN ×2 (14:51→15:45)
[2024-03-23] MEDS ORDERED: ePHEDrine sulfate 50 MG/ML AMP IV PRN ×2 (14:51→15:45)
[2024-03-23] MEDS ORDERED: MEPERIDINE HCL 25 MG/ML CARP/VIAL IV PRN (14:51)
[2024-03-23] MEDS ORDERED: NALOXONE HCL 1 MG in SODIUM CHLORIDE 0.9% 1,000 ML IV PRN ×2 (14:51→15:45)
[2024-03-23] MEDS ORDERED: PROMETHAZINE 6.25 MG/50.25 ML BAG IV PRN (14:51)
[2024-03-23] MEDS ORDERED: NALBUPHINE HCL INJ 10 MG/ML AMP IV PRN ×2 (14:51→15:45)
[2024-03-23] MEDS ORDERED: ONDANSETRON INJ 2 MG/ML 2 ML VIAL IV PRN ×2 (14:51→15:45)
[2024-03-23] MEDS ORDERED: HYDROmorphone INJ 0.5 MG/0.5 ML SYR IV PRN ×2 (14:51→15:45)
[2024-03-23] MEDS ORDERED: MoRPHine SULFATE 2 MG/ML CARP IV PRN ×2 (14:51→15:45)
[2024-03-23] MEDS ORDERED: diphenhydrAMINE 50 MG/ML VIAL IV PRN ×2 (14:51→15:45)
--- NOTE | 2024-03-23 14:51 | Communication Note ---
Date of Service: March 23, 2024 Arrest of descent @ 10cm. Epidural working well for contraction pain. Will plan to dose labor epidural for c section. All questions answered
[2024-03-23] MEDS ORDERED: ONDANSETRON INJ 2 MG/ML 2 ML VIAL ONE (14:53)
[2024-03-23] MEDS ORDERED: LIDOCAINE 2%/EPINEPHRINE 1:200,000 20 ML PF ONE (14:53)
[2024-03-23] MEDS: AZITHROMYCIN 250 MG TAB PO SCH (14:55)
[2024-03-23] MEDS: CITRIC ACID/SODIUM CITRATE 15 ML UDC ONE (15:00)
[2024-03-23] MEDS ORDERED: NO NARCOTICS OR SEDATIVES SCH ×2 (15:00→15:45)
[2024-03-23] MEDS ORDERED: SODIUM CHLORIDE 0.9% 1,000 ML IV SCH (15:00)
[2024-03-23] MEDS ORDERED: DC INTRASPINAL MORPHINE SCH ×2 (15:00→15:45)
[2024-03-23] MEDS: ceFAZolin 3000MG 3,000 MG/72.5 ML BAG IV SCH (15:00)
[2024-03-23] MEDS ORDERED: PHENYLEPHRINE HCL 25 MG/250 ML NSS IV ONE (15:03)
[2024-03-23] MEDS ORDERED: MoRPHine SULFATE PF 1 MG/ML 10 ML AMP/VIAL ONE (15:03)
[2024-03-23] MEDS ORDERED: fentaNYL citrate PF 100 MCG/2 ML VIAL ONE (15:14)
[2024-03-23] MEDS ORDERED: METHYLERGONOVINE MALEATE 0.2 MG/ML AMP ONE (15:44)
--- NOTE | 2024-03-23 16:20 | Operative Report ---
Post Operative Report Pre & Post Diagnosis Operation Date: 03/23/24 15:30 Pre-Op Diagnosis: 1.Intrauterine at 40 6/7 wga 2.Arrest of descent 3.Non-reassuring FHR tracing Post-Op Diagnosis: 1.Intrauterine at 40 6/7 wga 2.Arrest of descent 3.Non-reassuring FHR tracing I identified the patient and participated in the time-out.: Yes Procedure Operation Date: 03/23/24 15:30 Actual Procedures p Primary Low Transverse Section in OR for [facility] 03/23/24 @ 1537(Bilateral) - Elsa Brown MD Surgeon Elsa Brown MD Addiction Medicine Physician MD Eduin; MD Freda Quantitative Blood Loss (QBL) 861 Findings Consistent with Post-Op Diagnosis Normal appearing uterus with small posterior SS fibroid, normal appearing bilateral fallopian tubes and ovaries. Viable male infant with APGARs 9 and 9 Fluids UOP 200cc by teixeira catheter Specimens Placenta, cord blood Drains Teixeira draining clear urine Anesthesia Type L&D Only Epidural Exists Complications none Disposition Accompanied Patient To Recovery: Yes Disposition: Recovery Room Indications 34 yo G1 at 40 6/7 wga presented for IOL one day ago. She received penicillin for GBS+ status. She was started on pitocin and underwent arom. She received an epidural for pain control and continued to slowly progress to 10cm. She pushed and had good effort however was unable to progress past +1 for about 2 hours. heart rate was also noted to slowly become intolerant to certain pushing positions. She was counseled regarding management options, recommended and desired to proceed with above procedure Description of Procedure The patient was taken to the operating room after consents were ensured. The patient was properly identified. Anesthesia was bolused without difficulty. The patient was placed in a dorsal supine position with left lateral tilt, then p repped and draped in normal sterile fashion. Surgical time out was performed. Antibiotics were given for prophylaxis. Anesthesia was tested to ensure adequate surgical levels. Pfannenstiel skin incision was performed and carried down to the underlying fascia with a knife. The fascia was then nicked in the midline and extended laterally with pickups and Sarabia scissors. Superior portion of the fascia was grasped with Kochers x2 and elevated off the underlying rectus muscles using blunt dissection. Inferior portion of the fascia was then grasped with Nic clamps x2 and also elevated off the underlying muscles with blunt dissection. Midline was identified. The peritoneum was then entered and extended to provide adequate room for delivery of baby. A hand was inserted into the abdomen, uterus was noted to be clear of adhesions. Bladder blade was inserted, bladder flap was created in the usual fashion. A low transverse uterine incision was made in the uterus and extended bluntly in a superior to inferior fashion. Clear fluid noted at time of entry. head was grasped and elevated through the hysterotomy in an atraumatic fashion. head was slighty asynclitic. The baby delivered in NIMESH position, no nuchal cord. Remainder of the body delivered without incident. Nose and mouth were bulb suctioned on the surgical field. The cord was double clamped and cut, baby was handed off to awaiting pediatrics staff. Cord segment and blood were obtained. Placenta was then expressed from the uterus. The uterus was exteriorized. Several passes were made inside the uterus to remove the remaining membranes. Attention was then turned to the hysterotomy, which was then closed with a running locked suture of 0 Vicryl on a CTX needle. An imbricating layer was then performed using 0-Monocryl. Lower uterine segment was slightly boggy so methergine was given and this improved. There was noted to be good hemostasis. The posterior cul-de-sac was then inspected and cleaned of clot and debris. The hysterotomy was again inspected and noted to be hemostatic. The uterus was returned to the abdomen. The right and left pericolic gutters were cleaned of all clot and debris. The hysterotomy was again noted to be hemostatic. Space of Retzius was noted to be hemostatic. The fascia was then closed with a running suture of 0 Vicryl on a CT1 needle. Subcutaneous tissue was copiously irrigated and noted to be hemostatic. Subcutaneous tissue was re-approximated using 2-0 plain gut. The skin was then closed with a running suture of 3-0 Monocryl in a subcuticular fashion. At termination of the procedure, fundal pressure was applied and a moderate amount of lochia was expressed. Pressure dressing was applied to the patient. She tolerated the procedure well. All sponge, needle, instrument counts were correct x 2. I attest to the content of the Intraoperative Record and any orders documented therein. Any exceptions are noted below. OB Procedure Charges 14552
[2024-03-23] MEDS ORDERED: SENNA 8.6 MG TAB PO PRN (16:23)
[2024-03-23] MEDS ORDERED: MAGNESIUM HYDROXIDE SUSP 30 ML UDC PO PRN (16:23)
[2024-03-23] MEDS ORDERED: BENZOCAINE 20% SPRY 85 APPLN/85 GM CAN EXT PRN (16:23)
[2024-03-23] MEDS ORDERED: HYDROCORTISONE ACETATE 25 MG SUPP PR PRN (16:23)
[2024-03-23] MEDS ORDERED: CALCIUM CARBONATE 500 MG CHEWABLE TAB PO PRN (16:23)
[2024-03-23] MEDS: KETOROLAC 30 MG/ML VIAL IV SCH (16:59)
[2024-03-23] MEDS: OXYTOCIN 20 UNITS/LR 1,002 ML IV SCH (17:02)
--- NOTE | 2024-03-23 17:36 | Anesthesiology Progress Note ---
Date of Service March 23, 2024 Anesthesia Post Procedure Vital Signs Vital Signs: Temp Pulse Resp BP Pulse Ox 03/23/24 17:32 72 96 03/23/24 17:30 72 94 03/23/24 17:27 95 03/23/24 17:27 73 03/23/24 17:27 75 115/62 03/23/24 17:22 71 95 03/23/24 17:17 70 124/67 97 03/23/24 17:15 18 03/23/24 17:13 36.6 C 18 03/23/24 17:12 71 97 03/23/24 17:07 70 97 03/23/24 17:06 73 139/60 03/23/24 17:05 16 03/23/24 17:02 72 97 03/23/24 16:57 75 97 03/23/24 16:55 18 03/23/24 16:52 74 97 03/23/24 16:47 75 97 03/23/24 16:46 75 110/58 L 03/23/24 16:45 18 03/23/24 16:42 82 98 03/23/24 16:37 98 03/23/24 16:37 69 03/23/24 16:37 63 118/57 L 03/23/24 16:35 16 03/23/24 16:32 66 98 03/23/24 16:27 98 03/23/24 16:27 73 03/23/24 16:27 73 99/48 L 03/23/24 16:25 18 03/23/24 16:25 78 90 03/23/24 16:21 66 98 03/23/24 16:17 66 90/51 L 03/23/24 16:16 65 98 03/23/24 15:10 69 98 03/23/24 15:05 63 99 03/23/24 15:00 69 99 03/23/24 14:55 70 99 03/23/24 14:50 67 100 03/23/24 14:45 69 99 03/23/24 14:40 70 99 03/23/24 14:39 65 123/77 03/23/24 14:35 65 98 03/23/24 14:30 73 99 03/23/24 14:25 76 98 03/23/24 14:24 78 121/77 03/23/24 14:20 69 100 03/23/24 14:15 92 H 96 03/23/24 14:10 65 97 03/23/24 14:05 60 95 03/23/24 14:00 66 97 03/23/24 13:55 97 03/23/24 13:55 58 L 03/23/24 13:55 60 115/69 03/23/24 13:50 79 98 03/23/24 13:45 74 98 03/23/24 13:41 92 H 82 L 03/23/24 13:40 69 97 03/23/24 13:39 71 131/70 03/23/24 13:35 76 97 03/23/24 13:30 90 99 03/23/24 13:25 82 96 03/23/24 13:24 85 131/84 03/23/24 13:20 95 H 98 03/23/24 13:15 72 97 03/23/24 13:10 68 96 03/23/24 13:05 87 96 03/23/24 13:00 69 95 03/23/24 12:55 72 95 03/23/24 12:50 78 96 03/23/24 12:45 68 96 03/23/24 12:41 72 124/58 L 03/23/24 12:40 93 03/23/24 12:40 72 03/23/24 12:40 71 86 L 03/23/24 12:35 68 96 03/23/24 12:30 106 H 96 03/23/24 12:26 102 H 127/54 L 03/23/24 12:25 66 96 03/23/24 12:23 64 86 L 03/23/24 12:20 70 97 03/23/24 12:16 71 88 L 03/23/24 12:15 70 97 03/23/24 12:11 70 122/58 L 03/23/24 12:10 96 03/23/24 12:10 71 03/23/24 12:10 75 88 L 03/23/24 12:05 68 95 03/23/24 12:03 77 84 L 03/23/24 12:00 75 97 03/23/24 11:55 80 97 03/23/24 11:54 71 123/72 03/23/24 11:52 78 85 L 03/23/24 11:50 64 95 03/23/24 11:45 93 H 99 03/23/24 11:41 77 124/62 03/23/24 11:40 97 03/23/24 11:40 105 H 03/23/24 11:40 76 89 L 03/23/24 11:35 71 99 03/23/24 11:33 80 82 L 03/23/24 11:30 71 99 03/23/24 11:25 107 H 100 03/23/24 11:24 70 130/78 03/23/24 11:20 73 84 L 03/23/24 11:17 73 86 L 03/23/24 11:15 70 98 03/23/24 11:10 106 H 100 03/23/24 11:05 76 99 03/23/24 11:03 78 86 L 03/23/24 11:00 75 100 03/23/24 10:55 100 03/23/24 10:55 72 03/23/24 10:55 71 130/84 03/23/24 10:50 69 99 03/23/24 10:45 69 100 03/23/24 10:40 66 99 03/23/24 10:39 72 16 120/76 03/23/24 10:35 71 99 03/23/24 10:30 63 100 03/23/24 10:25 100 03/23/24 10:25 62 03/23/24 10:25 63 115/67 03/23/24 10:20 68 100 03/23/24 10:15 70 100 03/23/24 10:11 63 123/69 03/23/24 10:10 63 99 03/23/24 10:05 59 L 100 03/23/24 10:00 64 100 03/23/24 09:55 100 03/23/24 09:55 71 03/23/24 09:55 37.4 C 65 16 134/76 03/23/24 09:50 61 100 03/23/24 09:45 61 100 03/23/24 09:40 65 100 03/23/24 09:39 62 135/73 03/23/24 09:35 63 100 03/23/24 09:30 69 100 03/23/24 09:25 63 99 03/23/24 09:24 65 135/72 03/23/24 09:20 61 98 03/23/24 09:15 60 99 03/23/24 09:10 69 100 03/23/24 09:09 64 138/93 03/23/24 09:05 61 99 03/23/24 09:00 64 99 03/23/24 08:55 99 03/23/24 08:55 72 03/23/24 08:55 70 134/91 03/23/24 08:50 65 98 03/23/24 08:45 63 99 03/23/24 08:40 71 100 03/23/24 08:39 71 127/68 03/23/24 08:35 68 99 03/23/24 08:30 71 98 03/23/24 08:25 79 136/63 99 03/23/24 08:20 74 98 03/23/24 08:15 63 98 03/23/24 08:10 72 129/80 98 03/23/24 08:05 63 97 03/23/24 08:00 36.6 C 66 18 99 03/23/24 07:56 72 137/74 03/23/24 07:55 79 100 03/23/24 07:50 65 99 03/23/24 07:45 71 99 03/23/24 07:40 75 99 03/23/24 07:39 65 128/69 03/23/24 07:35 71 100 03/23/24 07:30 77 100 03/23/24 07:25 74 99 03/23/24 07:24 68 16 133/73 03/23/24 07:20 63 99 03/23/24 07:15 64 99 03/23/24 07:10 67 138/76 100 03/23/24 07:05 80 100 03/23/24 07:00 81 99 03/23/24 06:55 68 141/74 H 98 03/23/24 06:50 36.8 C 75 18 98 03/23/24 06:45 74 98 03/23/24 06:40 81 99 03/23/24 06:35 84 98 03/23/24 06:30 73 99 03/23/24 06:25 66 100 03/23/24 06:24 70 16 128/80 03/23/24 06:20 66 98 03/23/24 06:15 67 98 03/23/24 06:10 98 03/23/24 06:10 65 03/23/24 06:10 67 129/68 03/23/24 06:04 62 98 03/23/24 05:59 65 99 03/23/24 05:57 63 121/67 03/23/24 05:54 98 H 99 03/23/24 05:49 68 98 03/23/24 05:45 16 03/23/24 05:45 36.8 C 16 03/23/24 05:44 66 99 03/23/24 05:39 83 136/84 100 03/23/24 05:34 66 97 03/23/24 05:29 65 97 03/23/24 05:24 65 131/83 98 03/23/24 05:19 69 97 03/23/24 05:14 68 98 03/23/24 05:09 98 03/23/24 05:09 71 03/23/24 05:09 66 127/80 03/23/24 05:04 71 99 03/23/24 04:59 67 100 03/23/24 04:55 69 127/83 03/23/24 04:54 69 99 03/23/24 04:49 65 98 03/23/24 04:44 61 97 03/23/24 04:39 66 137/78 100 03/23/24 04:34 65 99 03/23/24 04:29 76 100 03/23/24 04:25 68 135/97 03/23/24 04:24 67 100 03/23/24 04:19 79 98 03/23/24 04:14 79 99 03/23/24 04:13 88 94 03/23/24 04:09 100 03/23/24 04:09 67 03/23/24 04:09 72 130/89 03/23/24 04:04 69 97 03/23/24 04:00 16 03/23/24 04:00 36.8 C 16 03/23/24 03:59 56 L 98 03/23/24 03:55 61 126/82 03/23/24 03:54 62 96 03/23/24 03:49 58 L 97 03/23/24 03:44 61 97 03/23/24 03:40 60 127/77 03/23/24 03:39 57 L 98 03/23/24 03:34 59 L 98 03/23/24 03:29 69 97 03/23/24 03:25 59 L 124/72 03/23/24 03:24 58 L 99 03/23/24 03:19 60 99 03/23/24 03:14 60 100 03/23/24 03:11 64 129/77 03/23/24 03:09 62 100 03/23/24 03:04 74 99 03/23/24 02:59 71 99 03/23/24 02:54 79 139/89 100 03/23/24 02:49 66 98 03/23/24 02:44 76 99 03/23/24 02:39 68 131/78 100 03/23/24 02:34 68 100 03/23/24 02:30 18 03/23/24 02:30 36.6 C 18 03/23/24 02:29 69 100 03/23/24 02:24 67 127/78 99 03/23/24 02:19 69 96 03/23/24 02:14 67 100 03/23/24 02:10 69 126/75 03/23/24 02:09 63 100 03/23/24 02:04 70 98 03/23/24 01:59 60 99 03/23/24 01:54 74 126/76 100 03/23/24 01:49 62 97 03/23/24 01:44 72 99 03/23/24 01:39 78 124/75 98 03/23/24 01:34 75 97 03/23/24 01:29 76 96 03/23/24 01:26 65 122/74 03/23/24 01:24 67 97 03/23/24 01:19 64 99 03/23/24 01:14 67 97 03/23/24 01:10 65 121/72 03/23/24 01:09 67 98 03/23/24 01:04 71 97 03/23/24 00:59 66 98 03/23/24 00:54 70 127/74 98 03/23/24 00:49 77 98 03/23/24 00:44 61 98 03/23/24 00:40 70 131/75 03/23/24 00:39 66 98 03/23/24 00:34 67 99 03/23/24 00:29 75 100 03/23/24 00:24 78 99 03/23/24 00:23 67 140/79 03/23/24 00:19 96 H 100 10/18/24 00:14 99 03/23/24 00:14 79 03/23/24 00:14 65 119/68 03/23/24 00:10 71 117/56 L 03/23/24 00:08 79 99 03/23/24 00:04 68 18 118/69 03/23/24 00:03 65 98 03/23/24 00:00 74 129/68 03/22/24 23:58 98 03/22/24 23:58 67 03/22/24 23:54 18 03/22/24 23:54 36.7 C 18 03/22/24 23:53 99 03/22/24 23:53 65 03/22/24 23:52 64 03/22/24 23:52 123/61 03/22/24 23:49 80 03/22/24 23:49 132/68 03/22/24 23:48 98 03/22/24 23:48 77 03/22/24 23:46 18 03/22/24 23:46 18 03/22/24 23:46 76 03/22/24 23:46 115/66 03/22/24 23:43 99 03/22/24 23:43 76 03/22/24 23:43 77 03/22/24 23:43 121/66 03/22/24 23:40 69 03/22/24 23:40 126/70 03/22/24 23:38 99 03/22/24 23:38 69 03/22/24 23:33 98 03/22/24 23:33 71 03/22/24 23:33 131/84 03/22/24 23:28 100 03/22/24 23:28 72 03/22/24 23:23 100 03/22/24 23:23 67 03/22/24 23:03 100 03/22/24 23:03 70 03/22/24 22:58 100 03/22/24 22:58 77 03/22/24 22:53 99 03/22/24 22:53 68 03/22/24 22:48 99 03/22/24 22:48 74 03/22/24 22:43 100 03/22/24 22:43 65 03/22/24 22:38 99 03/22/24 22:38 73 03/22/24 22:33 99 10/17/24 22:33 71 03/22/24 22:32 74 03/22/24 22:32 109/57 L 03/22/24 22:28 98 03/22/24 22:28 89 03/22/24 22:23 99 03/22/24 22:23 71 03/22/24 22:18 100 03/22/24 22:18 69 03/22/24 22:13 100 03/22/24 22:13 72 03/22/24 22:10 18 03/22/24 22:10 36.5 C 18 03/22/24 22:08 100 03/22/24 22:08 81 03/22/24 22:03 99 03/22/24 22:03 74 03/22/24 21:31 18 03/22/24 21:31 18 03/22/24 21:31 64 03/22/24 21:31 117/75 03/22/24 20:32 18 03/22/24 20:32 18 03/22/24 20:32 61 03/22/24 20:32 121/74 03/22/24 19:30 64 03/22/24 19:30 134/81 03/22/24 19:07 18 03/22/24 19:07 37.1 C 18 03/22/24 19:00 20 03/22/24 19:00 20 03/22/24 18:30 18 03/22/24 18:30 18 03/22/24 18:02 75 03/22/24 18:02 135/77 03/22/24 18:00 18 03/22/24 18:00 18 Pain Intensity Abdomen: Pain Intensity: 3 Transfer of Care Handoff Completed per policy Notes Mental Status: alert / awake / arousable and participated in evaluation Patient Amnestic to Procedure: Yes Nausea / Vomiting: adequately controlled Pain: adequately controlled Airway Patency, RR, SpO2: stable & adequate BP & HR: stable & adequate Hydration State: stable & adequate Anesthetic Complications: no major complications apparent and Pt Satisfied with anesthetic care
--- NOTE | 2024-03-23 17:36 | Anesthesia Procedure Note ---
Date of Service March 23, 2024 Anesthesia Post Epidural Note Vital Signs Vital Signs: Temp Pulse Resp BP Pulse Ox 36.6 C 72 18 115/62 96 03/23/24 17:13 03/23/24 17:32 03/23/24 17:15 03/23/24 17:27 03/23/24 17:32 Pain Intensity Abdomen: Pain Intensity: 3 Notes Mental Status: alert / awake / arousable and participated in evaluation Nausea / Vomiting: adequately controlled Pain: adequately controlled Airway Patency, RR, SpO2: stable & adequate BP & HR: stable & adequate Hydration State: stable & adequate Neuraxial Anesthesia: was administered and sensory block resolved Anesthetic Complications: no major complications apparent and Pt Satisfied with anesthetic care Epidural: Removed without complications and With tip intact
[2024-03-23] MEDS: SIMETHICONE 80 MG CHEW PO SCH (18:49)
[2024-03-23] MEDS: DOCUSATE SODIUM 100 MG CAP PO SCH (20:36)
[2024-03-23] MEDS: ACETAMINOPHEN 325 MG TAB PO SCH (22:35)
--- NOTE | 2024-03-24 05:58 | Obstetrical Progress Note ---
Date of Service <Owen Rose DO - Last Filed: 03/24/24 07:29> March 24, 2024 Assessment & Plan <Owen MiguelLisa Rose DO - Last Filed: 03/24/24 07:29> (1) state: Patient is a 34yo day 1 s/p for arrest of descent Patient feeling well today, BP slightly low but otherwise VSS Continue care Ambulation and as tolerated Pain control with Tylenol, Toradol if needed Hgb: 9.8 down from 12.4 on 03/22 Home: consider tomorrow or next day Follow up with Dr. Brown in 6wks (2) Leukocytosis: today 15.03, up from 10.91 yesterday monitor for signs of infection CBC with dif tomorrow AM labs Leukocytosis type: unspecified Qualified Code(s): D72.829 - Elevated white blood cell count, unspecified <Elsa Brown MD - Last Filed: 03/24/24 07:31> (1) state: (2) Leukocytosis: Subjective <Owen MiguelLisa Rose DO - Last Filed: 03/24/24 07:29> Patient is a 34yo day 1 s/p for arrest of descent. Ambulation: yes Voiding: urinating, no BM Passing gas: yes Diet tolerance: OB regular Lochia: small Feeding type: breast, bottle if necessary Current pain: minor scar pain Resting comfortably this AM in NAD Denies fever, body aches, chills, PARK, chest pain, SOB, LE swelling/tenderness, LE numbness/tingling Review of Systems as above Physical Exam <Owen Rose DO - Last Filed: 03/24/24 07:29> General: A&Ox4, answers questions appropriately, resting comfortably, nontoxic in appearance Skin: low transverse scar healing with no significant erythema, swelling, or tenderness; skin otherwise warm, dry, intact HEENT: NC/AT, anicteric sclerae, conjunctiva w/o injection, moist mucous membranes Heart: +s1/s2, RRR, no murmurs/rubs/gallops Lungs: equal air entry b/l, clear to auscultation b/l, no wheeze/rales/rhonchi Abd: +BS, no erythema, mild generalized abdominal swelling, unable to palpate fundus but lower abdomen mildly tender to palpation Ext: no erythema/swelling/tenderness to palpation, no cyanosis/clubbing Neuro: speech intact, no facial droop, moving all extremities on command Results & Data <Owen Rose DO - Last Filed: 03/24/24 07:29> Vital Signs (Past 12 Hours) Vital Signs Temp Pulse Pulse Resp BP BP Pulse Ox 03/24/24 05:00 20 98 03/24/24 03:56 16 96 03/24/24 03:42 36.7 C 61 18 95/59 L 96 03/24/24 03:05 16 95 03/24/24 02:00 18 98 03/24/24 01:00 18 97 03/24/24 00:04 16 95 03/23/24 23:25 36.6 C 64 16 97/62 L 96 03/23/24 22:57 16 96 03/23/24 22:00 18 97 03/23/24 21:00 16 96 03/23/24 20:30 18 97 03/23/24 20:30 03/23/24 19:37 36.6 C 73 16 100/64 96 03/23/24 19:30 16 96 03/23/24 18:46 76 97 03/23/24 18:41 73 96 03/23/24 18:36 75 96 03/23/24 18:31 74 97 03/23/24 18:26 72 97 03/23/24 18:22 79 97 03/23/24 18:17 96 03/23/24 18:17 69 03/23/24 18:17 70 113/71 03/23/24 18:15 18 03/23/24 18:12 71 96 03/23/24 18:07 96 03/23/24 18:07 74 03/23/24 18:07 76 120/70 03/23/24 18:02 76 97 03/23/24 17:57 74 96 03/23/24 17:56 72 113/68 O2 Del Method 03/24/24 05:00 03/24/24 03:56 03/24/24 03:42 Room Air 03/24/24 03:05 03/24/24 02:00 03/24/24 01:00 03/24/24 00:04 03/23/24 23:25 Room Air 03/23/24 22:57 03/23/24 22:00 03/23/24 21:00 03/23/24 20:30 03/23/24 20:30 Room Air 03/23/24 19:37 Room Air 03/23/24 19:30 03/23/24 18:46 03/23/24 18:41 03/23/24 18:36 03/23/24 18:31 03/23/24 18:26 03/23/24 18:22 03/23/24 18:17 03/23/24 18:17 03/23/24 18:17 03/23/24 18:15 03/23/24 18:12 03/23/24 18:07 03/23/24 18:07 03/23/24 18:07 03/23/24 18:02 03/23/24 17:57 03/23/24 17:56 Supervising Physician <Elsa Brown MD - Last Filed: 03/24/24 07:31> Co-Signing Physician Notes Resident Physician Supervision Note: I interviewed and examined the patient. Discussed with Dr. Barba and agree with findings and plan as documented in the note. Any exceptions or clarifications are listed here: POD1 s/p pLTCS, doing well. VSS, exam benign and wnl. Dressing c/d/i. Continue routine care Documented By: Elsa Brown MD Resident Activity Tracking <Owen Rose DO - Last Filed: 03/24/24 07:29> Resident Involvement: Resident Care Provided Care Provided: OB Delivery
[2024-03-24] MEDS ORDERED: AZITHROMYCIN 500 MG in DEXTROSE 5% 250 ML IV SCH (06:00)
[2024-03-24 07:10] LABS: Basophils # (auto) 0.04 K/uL (0.00-0.20); Basophils % (auto) 0.3 %; Eosinophils % (auto) 1.3 %; Hematocrit (blood only) 28.3 % (37.0-47.0); Hemoglobin 9.8 g/dl (12.0-16.0); Immature Granulocytes # (auto) 0.11 K/uL (0.01-0.20); Immature Granulocytes % (auto) 0.7 %; Lymphocytes # (auto) 1.03 K/uL (1.20-3.40); Lymphocytes % (auto) 6.9 %; Mean Corpuscular Hemoglobin 31.2 pg (25.0-34.0); Mean Corpuscular Hgb Conc 34.6 g/dL (32.0-36.0); Mean Corpuscular Volume 90.1 fL (80.0-100.0); Mean Platelet Volume 11.1 fL (9.4-12.4); Monocytes # (auto) 0.63 K/uL (0.11-0.59); Monocytes % (auto) 4.2 %; Neutrophils # (auto) 13.02 K/uL (1.40-6.50); Neutrophils % (auto) 86.6 %; Platelet Count 191 K/uL (130-400); RDW Coefficient of Variation 13.4 % (11.5-14.5); RDW Standard Deviation 43.7 fL (36.4-46.3); Red Blood Count 3.14 M/uL (4.20-5.40); White Blood Count 15.03 K/ul (4.8-10.8)
[2024-03-24] MEDS: PRENATAL VITAMIN 1 TAB PO SCH (08:59)
[2024-03-24] MEDS: CETIRIZINE HCL 10 MG TABLET PO SCH (08:59)
[2024-03-24] MEDS: FERROUS SULFATE 325 MG TAB PO SCH (08:59)
[2024-03-24] MEDS ORDERED: ONDANSETRON INJ 2 MG/ML 2 ML VIAL IV PRN (09:45)
[2024-03-24] MEDS ORDERED: PROMETHAZINE 12.5 MG/50.5 ML BAG IV PRN (09:45)
[2024-03-24] MEDS ORDERED: diphenhydrAMINE 50 MG/ML VIAL IV PRN (09:45)
[2024-03-24] MEDS ORDERED: oxyCODONE HCL IR 5 MG TAB (IMMEDIATE RELEASE) PO PRN (09:45)
[2024-03-24] MEDS ORDERED: diphenhydrAMINE Capsule 25 MG CAP PO PRN (09:45)
[2024-03-24] MEDS ORDERED: HYDROmorphone INJ 0.5 MG/0.5 ML SYR IV PRN (09:45)
[2024-03-24] MEDS ORDERED: KETOROLAC 30 MG/ML VIAL IV PRN (16:15)
[2024-03-24] MEDS: COUGH DROP (SUGAR FREE) LOZ 24 LOZ/1 BOX BUCCAL ONE (16:19)
[2024-03-24] MEDS: IBUPROFEN 600 MG TAB PO SCH (16:19)
[2024-03-24] MEDS: SODIUM CHLORIDE 0.9% PF INJ 10 ML VIAL EPI STA (19:15)
[2024-03-24] MEDS: LIDOCAINE 2%/EPINEPHRINE 1:200,000 20 ML PF EPI STA (19:15)
[2024-03-24] MEDS: fentaNYL citrate PF 100 MCG/2 ML VIAL EPI STA (19:15)
[2024-03-24] MEDS: BUPIVACAINE 0.25% PF 30 ML VIAL EPI STA (19:15)
[2024-03-24] MEDS: SODIUM CHLORIDE 0.9% 1,000 ML IV SCH (19:16)
[2024-03-24] MEDS: CITRIC ACID/SODIUM CITRATE 15 ML UDC PO SCH (19:16)
[2024-03-24] MEDS: MoRPHine SULFATE PF 1 MG/ML 10 ML AMP/VIAL EPI ONE (19:16)
[2024-03-24] MEDS: MoRPHine SULFATE PF 1 MG/ML 10 ML AMP/VIAL INT SPINAL ONE (19:16)
[2024-03-24] MEDS: DIPHTHER/TETAN/PERTUS Vaccine (Tdap, Adol/Adult) 0.5mL IM ONE (19:18)
[2024-03-24] MEDS: bisacodyL 5 MG TABEC PO SCH (20:07)
[2024-03-24] MEDS: LACTATED RINGER'S 1,000 ML IV SCH (21:31)
[2024-03-25 06:21] LABS: Basophils # (auto) 0.05 K/uL (0.00-0.20); Basophils % (auto) 0.4 %; Eosinophils # (auto) 0.33 K/uL (0.00-0.50); Eosinophils % (auto) 2.5 %; Hematocrit (blood only) 27.8 % (37.0-47.0); Hemoglobin 9.4 g/dl (12.0-16.0); Immature Granulocytes # (auto) 0.09 K/uL (0.01-0.20); Immature Granulocytes % (auto) 0.7 %; Lymphocytes # (auto) 1.35 K/uL (1.20-3.40); Lymphocytes % (auto) 10.4 %; Mean Corpuscular Hemoglobin 31.2 pg (25.0-34.0); Mean Corpuscular Hgb Conc 33.8 g/dL (32.0-36.0); Mean Corpuscular Volume 92.4 fL (80.0-100.0); Monocytes # (auto) 0.76 K/uL (0.11-0.59); Monocytes % (auto) 5.8 %; Neutrophils # (auto) 10.44 K/uL (1.40-6.50); Neutrophils % (auto) 80.2 %; Platelet Count 199 K/uL (130-400); RDW Coefficient of Variation 13.6 % (11.5-14.5); RDW Standard Deviation 45.1 fL (36.4-46.3); Red Blood Count 3.01 M/uL (4.20-5.40); White Blood Count 13.02 K/ul (4.8-10.8)
--- NOTE | 2024-03-25 08:31 | Obstetrical Progress Note ---
Date of Service March 25, 2024 Assessment & Plan (1) state: Doing well. Medically clear for discharge; may want to stay additional night due to concerns about and getting enough milk. D/C discussed as being safe today from maternal standpoint so will prep for D/C as if she'll be ready to go before this evening, so she has the option to do so, and if she elects to stay one more night no problem. Subjective Ambulation: ambulating normally Voiding: no voiding problems Passing Gas:: Yes Diet Tolerance:: regular diet Lochia:: Small Feeding Type:: breast feeding Physical Exam Constitutional WD/WN, vitals as above Eyes PERRL, conjunctivae normal, anicteric sclerae Neck normal visual inspection Respiratory normal respiratory effort and able to speak in complete sentences; no respiratory distress and no labored breathing Cardiovascular Rate/Rhythm: regular rate and regular rhythm Extremities: no edema Chest (Breasts) Chest: normal inspection of chest Gastrointestinal (Abdomen) Inspection/Auscultation: abdomen normal to inspection Soft, postgravid Incision c/d/i, no dressing Psychiatric A+Ox3, euthymic affect Genitourinary OB Exam Abdomen: + fundal height Fundus: + firm and + relation to umbilicus (fundus just below umbilicus); not tender Results & Data Vital Signs (Past 12 Hours) Vital Signs Temp Pulse Resp BP Pulse Ox O2 Del Method 03/24/24 23:00 98.2 F 77 18 113/71 96 Room Air
[2024-03-25] MEDS ORDERED: bisacodyL 10 MG SUPP PR PRN (16:15)
[2024-03-25] MEDS: IBUPROFEN 600 MG TAB PO PRN (16:34)
[2024-03-26 00:05] VITALS: TEMP 98.1; O2SAT 98
[2024-03-26] MEDS: ACETAMINOPHEN 325 MG TAB PO PRN (00:07)
--- NOTE | 2024-03-26 05:44 | Obstetrical Progress Note ---
Date of Service <Owen Rose DO - Last Filed: 03/26/24 06:08> March 26, 2024 Assessment & Plan <Owen Rose DO - Last Filed: 03/26/24 06:08> (1) state: Patient is a 34yo day 3 s/p for arrest of descent Patient feeling well today, VSS Continue care Ambulation and as tolerated Pain control with Tylenol, Toradol if needed Hgb: 9.4 on 03/25 down from 9.8 on 03/24 Home: d/c today Follow up with Dr. Brown in 6wks (2) Leukocytosis: resolving monitor for signs of infection Leukocytosis type: unspecified Qualified Code(s): D72.829 - Elevated white blood cell count, unspecified <Lyla Denny MD - Last Filed: 03/26/24 06:40> (1) state: (2) Leukocytosis: Subjective <Owen Rose DO - Last Filed: 03/26/24 06:08> Patient is a 34yo day 3 s/p for arrest of descent. Ambulation: yes Voiding: urinating and stooling Passing gas: yes Diet tolerance: OB regular Lochia: small Feeding type: breast, bottle if necessary Current pain: minimal at incision site and lower abdomen Resting comfortably this AM in NAD Denies fever, body aches, chills, PARK, chest pain, SOB, LE swelling/tenderness, LE numbness/tingling Review of Systems as above Physical Exam <Owen Rose DO - Last Filed: 03/26/24 06:08> General: A&Ox4, answers questions appropriately, resting comfortably, nontoxic in appearance Skin: low transverse scar healing with no erythema, swelling, or tenderness; skin otherwise warm, dry, intact HEENT: NC/AT, anicteric sclerae, conjunctiva w/o injection, moist mucous membranes Heart: +s1/s2, RRR, no murmurs/rubs/gallops Lungs: equal air entry b/l, clear to auscultation b/l, no wheeze/rales/rhonchi Abd: +BS, no erythema, mild generalized abdominal swelling, fundus firm around level of umbilicus, mild tenderness to palpation of suprapubic region and incision site Ext: no erythema/swelling/tenderness to palpation, no cyanosis/clubbing Neuro: speech intact, no facial droop, moving all extremities on command Results & Data <Owen Rose DO - Last Filed: 03/26/24 06:08> Vital Signs (Past 12 Hours) Vital Signs Temp Pulse Resp BP Pulse Ox O2 Del Method 03/26/24 00:04 36.7 C 68 16 116/78 98 Room Air 03/25/24 20:00 36.6 C 69 16 120/79 100 Room Air Supervising Physician <Lyla Denny MD - Last Filed: 03/26/24 06:40> Co-Signing Physician Notes Resident Physician Supervision Note: I interviewed and examined the patient. Discussed with Dr. Rose and agree with findings and plan as documented in the note. Any exceptions or clarifications are listed here: [ ] Documented By: Lyla Denny MD, FACOG Resident Activity Tracking <Owen Rose DO - Last Filed: 03/26/24 06:08> Resident Involvement: Resident Care Provided Care Provided: OB Delivery
[2024-03-26 08:55] VITALS: BP 125/85; RESP 18
[2024-03-26 11:56] VITALS: PULSE 68
--- NOTE | 2024-03-27 08:43 | Discharge Summary ---
Date of Service March 27, 2024 Admission HPI Per Admitting Provider Patient is a 34yo at 40w5d admitted for IOL. Endorses only complications with was some food aversion in 1st trimester and bleeding in the 2nd trimester, otherwise uncomplicated. States only pain she's having is left upper abdominal pain and left lower rib pain due to kicking/pressure on those areas more than others. Denies any recent fever, body aches, chills, headache, visual changes, SOB, LE pain/swelling, or LE numbness/tingling. GBS+ on 02/21/24, Rh- has received rhogam Discharge Data Procedures Performed Operation Date: 03/23/24 15:30 Actual Procedures p Section in LD 03/23/24 1437(Bilateral) - Elsa Brown MD Hospital Course (1) state: 34 yo G1 at 40 6/7 wga presented for IOL one day ago. She received penicillin for GBS+ status. She was started on pitocin and underwent arom. She received an epidural for pain control and continued to slowly progress to 10cm. She pushed and had good effort however was unable to progress past +1 for about 2 hours. heart rate was also noted to slowly become intolerant to certain pushing positions. She was counseled regarding management options, recommended and desired to proceed with above procedure. Postop course was uncomplicated and discharged home on POD3 Coding Level of Care Code None Diagnoses state Z39.2
== END 2024-03-26 14:10 | disposition home or self-care (01) | DRG 787 ==
LOC: 4S1 09:24 → 4E2 03-23 19:19